=== PATIENT | female | born 1995 | race Caucasian/White ===

== ENCOUNTER 2024-08-12 18:29 | Inpatient (IN) | payer OTHER ==
[2024-08-12] MEDS ORDERED: Calcium Carbonate 500 MG Tab.Chew PO PRN (18:37)
[2024-08-12] MEDS ORDERED: Acetaminophen 325 MG Tab PO PRN (18:37)
[2024-08-12] MEDS ORDERED: Lidocaine 1% 50 ML MDV INJECT PRN (18:37)
[2024-08-12] MEDS ORDERED: Misoprostol 25 MCG (1/4 of 100 MCG) Tab VAG PRN (18:37)
[2024-08-12] MEDS ORDERED: Oxytocin/0.9 % Sodium Chloride 30 UNIT/500 ML BAG IV SCH (18:45)
[2024-08-12 19:00] LABS: BASOPHILS PERCENT AUTO 0.2 % (0.0-1.0); EOSINOPHILS ABSOLUTE AUTO 0.1 K/mm3 (0.0-0.4); EOSINOPHILS PERCENT AUTO 0.6 % (0.0-6.0); HEMATOCRIT 34.8 % (37.0-47.0); HEMOGLOBIN 11.4 gm/dl (12.0-16.0); IMMATURE GRAN ABSOLUTE AUTO 0.07 K/mm3 (0.00-0.05); IMMATURE GRAN PERCENT AUTO 0.5 % (0.0-0.4); LYMPHOCYTES ABSOLUTE AUTO 3.8 K/mm3 (1.0-4.8); LYMPHOCYTES PERCENT AUTO 28.1 % (24.0-44.0); MEAN CORPUSCULAR HEMOGLOBIN 26.4 pg (28.0-32.0); MEAN CORPUSCULAR HGB CONC 32.8 g/dl (32.0-36.0); MEAN CORPUSCULAR VOLUME 80.6 fl (83.0-99.0); MEAN PLATELET VOLUME 10.3 fl (9.4-12.3); MONOCYTES ABSOLUTE AUTO 0.9 K/mm3 (0.0-0.8); MONOCYTES PERCENT AUTO 6.9 % (0.0-8.0); NEUTROPHILS ABSOLUTE AUTO 8.5 K/mm3 (1.8-7.7); NEUTROPHILS PERCENT AUTO 63.7 % (41.0-71.0); PLATELET COUNT,PLT 294 K/mm3 (150-400); RED BLOOD CELL COUNT 4.32 M/mm3 (4.10-5.30); WHITE BLOOD CELL COUNT,WBC 13.36 K/mm3 (3.9-11.3)
[2024-08-12] MEDS: Misoprostol 25 MCG (1/4 of 100 MCG) Tab VAG ONE (19:26)
[2024-08-12] MEDS: Lactated Ringers 1,000 ML IV SCH (19:26)
[2024-08-13] MEDS ORDERED: Lidocaine 2% with EPINEPHrine 1:200,000 20 ML SDV ONE
[2024-08-13] MEDS: Nalbuphine 10 MG/1 ML Vial IVPUSH PRN (00:32)
[2024-08-13] MEDS ORDERED: diphenhydrAMINE 50 MG/ML SDV IVPUSH PRN (01:43)
[2024-08-13] MEDS: Bupivacaine/fentaNYL/NS 100 ML Bag EPIDUR PRN (01:54)
[2024-08-13] MEDS: ePHEDrine 50 MG/ML SDV IVPUSH PRN (04:12)
[2024-08-13] MEDS: Ondansetron 4 MG/2 ML SDV IVPUSH PRN (07:48)
[2024-08-13] MEDS: Oxytocin/0.9 % Sodium Chloride 30 UNIT/500 ML BAG IV SCH (09:01)
[2024-08-13] MEDS: Methylergonovine 0.2 MG/1 ML Amp IM STA (18:28)
[2024-08-13] MEDS: Tranexamic Acid 1,000 MG/10 ML Vial IVPUSH ONE (18:40)
[2024-08-13 19:34] LABS: BASOPHILS PERCENT AUTO 0.2 % (0.0-1.0); EOSINOPHILS PERCENT AUTO 0.1 % (0.0-6.0); HEMATOCRIT 33.2 % (37.0-47.0); HEMOGLOBIN 10.8 gm/dl (12.0-16.0); IMMATURE GRAN PERCENT AUTO 0.8 % (0.0-0.4); LYMPHOCYTES ABSOLUTE AUTO 1.3 K/mm3 (1.0-4.8); LYMPHOCYTES PERCENT AUTO 5.2 % (24.0-44.0); MEAN CORPUSCULAR HEMOGLOBIN 26.3 pg (28.0-32.0); MEAN CORPUSCULAR HGB CONC 32.5 g/dl (32.0-36.0); MEAN PLATELET VOLUME 9.8 fl (9.4-12.3); MONOCYTES ABSOLUTE AUTO 1.4 K/mm3 (0.0-0.8); MONOCYTES PERCENT AUTO 5.3 % (0.0-8.0); NEUTROPHILS ABSOLUTE AUTO 22.9 K/mm3 (1.8-7.7); NEUTROPHILS PERCENT AUTO 88.4 % (41.0-71.0); WHITE BLOOD CELL COUNT,WBC 25.89 K/mm3 (3.9-11.3)
[2024-08-13 19:55] LABS: PLATELET COUNT,PLT 216 K/mm3 (150-400)
[2024-08-13 19:58] LABS: INR 0.97; PROTHROMBIN TIME 10.3 SECONDS (9.7-12.0)
[2024-08-13 19:59] LABS: PTT,PARTIAL THROMBOPLSTIN TIME 26.8 SECONDS (21.7-31.4)
[2024-08-13 20:01] LABS: SLIDE REVIEW ABNORMAL SMEAR
[2024-08-14] MEDS: Ibuprofen 600 MG Tab PO SCH (02:51)
[2024-08-14] MEDS: Methylergonovine 0.2 MG/1 ML Amp ONE (02:52)
[2024-08-14] MEDS: Tranexamic Acid 1,000 MG/10 ML Vial ONE (02:53)
[2024-08-14] MEDS: Acetaminophen 325 MG Tab PO PRN (06:51)
[2024-08-14] MEDS: Benzocaine/Menthol 20%-0.5% Spray 78 GM Cannister TOP PRN (06:54)
[2024-08-14] MEDS: Witch Hazel Medicated Pads 40/Jar TOP PRN (06:56)
[2024-08-14 19:50] LABS: HEMATOCRIT 28.3 % (37.0-47.0); HEMOGLOBIN 8.9 gm/dl (12.0-16.0); MEAN CORPUSCULAR HEMOGLOBIN 26.3 pg (28.0-32.0); MEAN CORPUSCULAR HGB CONC 31.4 g/dl (32.0-36.0); MEAN CORPUSCULAR VOLUME 83.5 fl (83.0-99.0); MEAN PLATELET VOLUME 9.9 fl (9.4-12.3); PLATELET COUNT,PLT 239 K/mm3 (150-400); RED BLOOD CELL COUNT 3.39 M/mm3 (4.10-5.30); WHITE BLOOD CELL COUNT,WBC 23.58 K/mm3 (3.9-11.3)
== END 2024-08-15 12:50 | disposition home or self-care (01) | DRG 807 ==
LOC: JD.OBCHECK 18:29 → JD.OB 18:39 → JD.OBCHECK 18:40 → JD.OB 18:41 → OBSVTOIN 08-13 18:17 → JD.OB 08-13 18:18
PROVIDERS: ADMIT Obstetrics & Gynecology; ATTEND Obstetrics & Gynecology
PROC: 3E0DXGC Introduction of Other Therapeutic Substance into Mouth and Pharynx, External Approach (ICD-10-PCS; principal; 2024-08-13)
PROC: 10H07YZ Insertion of Other Device into Products of Conception, Via Natural or Artificial Opening (ICD-10-PCS; principal; 2024-08-13)
PROC: 3E0R3BZ Introduction of Anesthetic Agent into Spinal Canal, Percutaneous Approach (ICD-10-PCS; principal; 2024-08-13)
PROC: 10E0XZZ Delivery of Products of Conception, External Approach (ICD-10-PCS; principal; 2024-08-13)
PROC: 3E033VJ Introduction of Other Hormone into Peripheral Vein, Percutaneous Approach (ICD-10-PCS; principal; 2024-08-13)
DX: O48.0 Post-term pregnancy (principal); Z37.0 Single live birth; Z3A.40 40 weeks gestation of pregnancy; Z88.0 Allergy status to penicillin; Z88.8 Allergy status to other drugs, medicaments and biological substances; Z79.899 Other long term (current) drug therapy
CPT/HCPCS: 01967; 36415; 51701; 51702; 59025; 59409; 85025; 85027; 85610; 85730; 86592; 86850; 86900; 86901; A9270-GY; J2210; J2300; J2405; J3490; J7120; J7999